=== PATIENT | female | born 1960 | race Two or more races ===

== ENCOUNTER 2017-09-26 21:54 | Emergency (ER) | payer MEDICAID, OTHER ==
[~2017-09-26] VITALS: Ht 160 cm; Wt 65.8 kg
[2017-09-26 22:49] VITALS: BP 138/85
--- NOTE | 2017-09-26 22:51 | Emergency Room Report ---
History of Present Illness General Chief Complaint: Nausea Source: Patient Present Illness HPI 56-year-old female presents with nausea and anxiety that started today she felt up-to-date sensation as well as headache and numbness in both of her fingers of both hands it all started after a neighbor spread Feces in front of her door.she feels better now. she does also want to show me that she's had a lump in he right medial thigh for 10 years, as well as a lump on her left foot dorsum for many years as well. She does not have a primary care doctor so she wanted to show me. She reports that sometimes painful but not red, and reports it's been the same size as for about 5-6 years at least. Allergies: Coded Allergies: Lettuce (Unverified Allergy, Unknown, 09/26/17) blisters PENICILLINS (Unverified Allergy, Unknown, 09/26/17) Patient History Past Medical History: see triage record Now: No Reviewed Nursing Documentation: PMH: Agreed; PSxH: Agreed Nursing Documentation-PMH Hx Cardiac Problems: Yes - Fibermyalgia, hemophylia, heart murmur Review of Systems All Other Systems: negative except mentioned in HPI Physical Exam Vital Signs Date Time Temp Pulse Resp B/P (MAP) Pulse Ox O2 Delivery O2 Flow Rate FiO2 09/26/17 21:48 98.9 109 18 161/96 98 Room Air 99.0 Sp02 EP Interpretation: reviewed, normal General Appearance: no apparent distress, alert, non-toxic Head: normocephalic Eyes: bilateral eye normal inspection, bilateral eye PERRL, bilateral eye EOMI ENT: normal ENT inspection, hearing grossly normal, normal pharynx, no angioedema, normal voice, moist mucus membranes Neck: normal inspection, full range of motion, supple, supple/symm/no masses Respiratory: chest non-tender, lungs clear, normal breath sounds, chest symmetrical, palpation of chest normal Cardiovascular #1: normal peripheral pulses, regular rate, rhythm Cardiovascular #2: 2+ radial (R), 2+ radial (L) Gastrointestinal: normal inspection, non tender, soft, no mass, no guarding, no rebound Rectal: deferred Genitourinary: normal inspection, no CVA tenderness Musculoskeletal: back normal, gait/station normal, normal range of motion, non- tender, no calf tenderness, other - Baseball sized lump medial proximal thigh, no erythema, no warmth, minimal tenderness; Also 2cm lump left foot dorsum, soft, no erythema nontender Neurologic: alert, responsive, 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 EKG Diagnostic Results EKG Time: 22:17 EP Interpretation: No ST segment changes no T-wave inversions Rate: normal Rhythm: NSR ST Segments: no acute changes ASA given to the pt in ED: No Rhythm Strip Diag. Results Rhythm Strip Time: 22:49 EP Interpretation: yes Rate: 85 Rhythm: NSR, no PVC's, no ectopy Chest X-Ray Diagnostic Results Chest X-Ray Diagnostic Results : Chest X-Ray Ordered: Yes # of Views/Limited/Complete: 1 View Indication: Other EP Interpretation: Yes Interpretation: no consolidation, no effusion, no pneumothorax, no acute cardiopulmonary disease Impression: No acute disease Electronically Signed by: Eloy Heart MD Last Vital Signs Date Time Temp Pulse Resp B/P (MAP) Pulse Ox O2 Delivery O2 Flow Rate FiO2 09/26/17 21:48 98.9 109 18 161/96 98 Room Air 99.0 Disposition: HOME, SELF-CARE Condition: Stable ELOY HEART M.D Sep 26, 2017 22:50
[2017-09-26] MEDS: LORazepam 1mg tab ORAL ONE ×2 (23:16→23:58)
--- NOTE | 2017-09-26 23:29 | Diagnostic Imaging Report ---
EXAM: XR Chest, 1 View CLINICAL HISTORY: VOMITING TECHNIQUE: Frontal view of the chest. COMPARISON: No relevant prior studies available. FINDINGS: Lungs: Unremarkable. No consolidation. Pleural space: Unremarkable. No pneumothorax. Heart: Unremarkable. No cardiomegaly. Mediastinum: Unremarkable. Bones/joints: No acute osseous abnormality. IMPRESSION: No acute cardiopulmonary process.
[2017-09-27 00:13] LABS: BASOPHILS % (AUTO) 1.1 % (0.0-2.0); EOSINOPHILS % (AUTO) 1.6 % (0.0-3.0); HEMATOCRIT 42.6 % (37.0-47.0); LYMPHOCYTES % (AUTO) 29.5 % (20.0-45.0); MEAN CORPUSCULAR VOLUME 87 FL (80-99); MONOCYTES % (AUTO) 7.4 % (1.0-10.0); NEUTROPHILS % (AUTO) 60.4 % (45.0-75.0); PLATELET COUNT 202 K/UL (150-450); RED CELL DISTRIBUTION WIDTH 10.7 % (11.6-14.8); WHITE BLOOD COUNT 7.7 K/UL (4.8-10.8)
[2017-09-27 00:30] LABS: ANION GAP 10 mmol/L (5-15); BLOOD UREA NITROGEN 8 mg/dL (7-18); CALCIUM 9.6 MG/DL (8.5-10.1); CARBON DIOXIDE 25 MMOL/L (21-32); CHLORIDE 106 MMOL/L (98-107); CREATININE 0.7 MG/DL (0.55-1.30); POTASSIUM 3.5 MMOL/L (3.5-5.1); SODIUM 141 MMOL/L (136-145)
[2017-09-27 00:44] LABS: ALANINE AMINOTRANSFERASE 41 U/L (12-78); ALBUMIN 3.9 G/DL (3.4-5.0); ALBUMIN/GLOBULIN RATIO 0.9 (1.0-2.7); ALKALINE PHOSPHATASE 98 U/L (46-116); ASPARTATE AMINO TRANSFERASE 31 U/L (15-37); BILIRUBIN,TOTAL 0.4 MG/DL (0.2-1.0); CKMB 1.8 NG/ML (0.0-3.6); CREATINE KINASE 141 U/L (26-308)
[2017-09-27 01:09] VITALS: BP 124/78
[2017-09-27] MEDS ORDERED: ZOFRAN4 M1 ORAL (01:58)
[2017-09-27 02:16] VITALS: BP 105/74
[2017-09-27] MEDS ORDERED: MAXALT10 MG PO (02:42)
--- NOTE | 2017-10-01 15:31 | Cardiology Report ---
APPROVED REPORT EKG Measurement Heart [id number] Normal sinus rhythm Possible Left atrial enlargement Cannot rule out Anterior infarct, age undetermined Abnormal ECG
== END 2017-09-27 02:16 | disposition home or self-care (01) ==
LOC: EDBD 21:54 → EMR 22:40
DX: F41.9 Anxiety disorder, unspecified (principal); R11.0 Nausea; R51 Headache; R22.42 Localized swelling, mass and lump, left lower limb; Z88.0 Allergy status to penicillin
CPT/HCPCS: 36415; 71045; 80053; 82550; 82553; 84484; 85025; 93005; 99283

== ENCOUNTER 2017-11-28 21:11 | Emergency (ER) | payer OTHER ==
[~2017-11-28] VITALS: Ht 160 cm; Wt 54.4 kg
[~2017-11-28 21:11] MED LIST: MAXALT10 MG PO; ZOFRAN4 M1 ORAL
[2017-11-28] MEDS ORDERED: ZOFRAN4 MG ORAL (21:24)
[2017-11-28] MEDS ORDERED: HYDROCODON-ACE1 EA15 ORAL (21:24)
--- NOTE | 2017-11-28 21:24 | Emergency Room Report ---
History of Present Illness General Chief Complaint: Headache Source: Patient, EMS Present Illness HPI Is a 57-year-old female with a history of breast cancer and hemophilia. She presents with chief complaint of headache and body pain status post fall. 2 days ago she tripped on the curb and fell hitting her head and hurting her body. She went to [facility] and had x-rays and CT head. There were negative. She was sent home without any medication. She called 911 today because she still having headache and feeling nauseous. She also has left shoulder pain and left knee pain that were not x-rays. Pain is 10 out of 10. Nausea but no vomiting. No diarrhea. No seizure. Nothing made it better and movement made it worse. Allergies: Coded Allergies: Lettuce (Unverified Allergy, Unknown, 09/26/17) blisters PENICILLINS (Unverified Allergy, Unknown, 09/26/17) Patient History Past Medical History: see triage record, old chart reviewed Past Surgical History: other Pertinent Family History: none Social History: Denies: smoking Now: No Immunizations: other Reviewed Nursing Documentation: PMH: Agreed; PSxH: Agreed Nursing Documentation-PMH Hx Cardiac Problems: Yes - Fibermyalgia, hemophylia, heart murmur Review of Systems Eye: Denies: eye pain, blurred vision ENT: Denies: ear pain, nose congestion, throat swelling Respiratory: Denies: cough, shortness of breath Cardiovascular: Denies: chest pain, palpitations Gastrointestinal: Denies: abdominal pain, diarrhea, nausea, vomiting Musculoskeletal: Reports: joint pain, joint swelling, muscle stiffness; Denies : back pain Skin: Denies: rash Neurological: Reports: headache; Denies: numbness Endocrine: Denies: increased thirst, increased urine Hematologic/Lymphatic: Denies: easy bruising All Other Systems: negative except mentioned in HPI Physical Exam Vital Signs Date Time Temp Pulse Resp B/P (MAP) Pulse Ox O2 Delivery O2 Flow Rate FiO2 11/28/17 21:12 97.9 80 16 133/91 98 97.9 vitals normal Sp02 EP Interpretation: reviewed, normal General Appearance: well appearing, no apparent distress, alert Head: normocephalic, other - left periorbital ecchymosis. Eyes: bilateral eye PERRL, bilateral eye EOMI ENT: hearing grossly normal, normal pharynx Neck: full range of motion, supple, no meningismus Respiratory: chest non-tender, lungs clear, normal breath sounds Cardiovascular #1: regular rate, rhythm, no murmur Gastrointestinal: normal bowel sounds, non tender, no mass, no organomegaly, no bruit, non-distended Musculoskeletal: back normal, gait/station normal, normal range of motion, other - left shoulder pain. no deformity. FROM. NVI. Left knee with mild abrasion and edema. FROM. no deformity. NVI Psychiatric: mood/affect normal Skin: warm/dry Medical Decision Making Diagnostic Impression: Primary Impression: Post concussive syndrome Additional Impressions: Contusion of left shoulder or upper extremity Contusion of left knee, initial encounter ER Course Patient presents with postconcussive syndrome secondary to injury and fall. CT scan is negative. I ordered a repeat CT scan you know she had one 2 days ago because of her hemophilia to look for delayed bleeding. There is no bleeding or skull fracture. We'll discharge home. Other X-Ray Diagnostic Results Other X-Ray Diagnostic Results #1: X-Ray ordered: left shoulder x-rays # of Views/Limited Vs Complete: 3 View Indication: Pain EP Interpretation: Yes Interpretation: no dislocation, no soft tissue swelling, no fractures Impression: No acute disease Electronically Signed by: Tadeo Diaz MD Other X-Ray Diagnostic Results #2: X-Ray ordered: left knee xrays # of Views/Limited Vs Complete: 4 View Indication: Pain EP Interpretation: Yes Interpretation: no dislocation, no soft tissue swelling, no fractures Impression: No acute disease Electronically Signed by: Tadeo Diaz MD CT/MRI/US Diagnostic Results CT/MRI/US Diagnostic Results : Imaging Test Ordered: CT head Impression Read by radiologist. No intracranial fracture or bleed. Last Vital Signs Date Time Temp Pulse Resp B/P (MAP) Pulse Ox O2 Delivery O2 Flow Rate FiO2 11/28/17 21:12 97.9 80 16 133/91 98 97.9 Status: improved Disposition: HOME, SELF-CARE Condition: Stable Scripts Rizatriptan Benzoate ([employer]) 10 Mg Tab.rapdis 10 MG PO DAILY, #30 TAB Prov: TADEO DIAZ M.D. 11/28/17 Ondansetron (Zofran) 4 Mg Tablet 4 MG ORAL Q6H PRN for Nausea & Vomiting, #20 TAB 0 Refills Prov: TADEO DIAZ M.D. 11/28/17 Hydrocodone/Acetaminophen 5-325* (HYDROCODONE/ACETAMINOPHEN 5-325*) 1 Each Tablet 1 TAB ORAL Q6H PRN for For Pain, #20 TAB 0 Refills Prov: TADEO DIAZ M.D. 11/28/17 Additional Instructions: Follow-up with your doctor in 7 days. Ice pack to the area. Return if symptom worsen. TADEO DIAZ M.D. Nov 28, 2017 21:24
[2017-11-28] MEDS ORDERED: Norco 5mg/325mg tab ORAL ONE (21:30)
[2017-11-28 21:36] VITALS: BP 133/91
--- NOTE | 2017-11-28 22:03 | Diagnostic Imaging Report ---
EXAM: CT Head Without Intravenous Contrast CLINICAL HISTORY: Headache, status post fall TECHNIQUE: Axial computed tomography images of the head/brain without intravenous contrast. CTDI is 0.15, 70.38 mGy and DLP is 1295 mGy-cm. One or more of the following dose reduction techniques were used: automated exposure control, adjustment of the mA and/or kV according to patient size, use of iterative reconstruction technique. COMPARISON: No relevant prior studies available. FINDINGS: Brain: Mild calcifications in the basal ganglia. No hemorrhage. No significant white matter disease. Ventricles: Unremarkable. No ventriculomegaly. Bones/joints: Unremarkable. No acute fracture. Soft tissues: Scalp hematoma in the left frontal region. Sinuses: Areas of mild mucosal thickening in the paranasal sinuses. Mastoid air cells: Unremarkable as visualized. No mastoid effusion. IMPRESSION: Scalp hematoma in the left frontal region. No CT evidence for acute intracranial injury.
[2017-11-28] MEDS ORDERED: MAXALT MLT10 MG PO (22:19)
--- NOTE | 2017-11-28 22:36 | Diagnostic Imaging Report ---
EXAM: XR Left Knee, 3 views CLINICAL HISTORY: TRAUMA, status post fall TECHNIQUE: Three views of the left knee. COMPARISON: No relevant prior studies available. FINDINGS: Bones/joints: Unremarkable. No acute fracture. No dislocation. Soft tissues: Unremarkable. IMPRESSION: No plain film evidence for acute fracture or dislocation. If there is continued clinical concern for fracture, consider CT or MRI for further evaluation.
--- NOTE | 2017-11-28 22:39 | Diagnostic Imaging Report ---
EXAM: XR Left Shoulder Complete, 3 Views CLINICAL HISTORY: TRAUMA, status post fall TECHNIQUE: 3 views of the left shoulder. COMPARISON: No relevant prior studies available. FINDINGS: Bones/joints: Degenerative changes of the acromioclavicular joint. No acute fracture. No dislocation. Soft tissues: Unremarkable. IMPRESSION: No definite plain film evidence for acute fracture or dislocation. If there is continued clinical concern for fracture, consider CT or MRI for further evaluation.
[2017-11-28 22:45] VITALS: BP 130/91
[2017-11-28 22:47] VITALS: BP 130/91
== END 2017-11-28 22:48 | disposition home or self-care (01) ==
LOC: EDBD 21:11 → EMR 21:35
DX: F07.81 Postconcussional syndrome (principal); S40.012A Contusion of left shoulder, initial encounter; S80.02XA Contusion of left knee, initial encounter; W01.198A Fall on same level from slipping, tripping and stumbling with subsequent striking against other object, initial encounter; Y92.480 Sidewalk as the place of occurrence of the external cause; D66 Hereditary factor VIII deficiency; I10 Essential (primary) hypertension; J42 Unspecified chronic bronchitis; M79.7 Fibromyalgia; R01.1 Cardiac murmur, unspecified; M25.40 Effusion, unspecified joint; Z88.0 Allergy status to penicillin; Z91.018 Allergy to other foods; Z85.3 Personal history of malignant neoplasm of breast
CPT/HCPCS: 70450; 99284

== ENCOUNTER 2018-04-12 05:32 | Emergency (ER) | payer OTHER ==
[~2018-04-12] VITALS: Ht 157.5 cm; Wt 54.4 kg
[~2018-04-12 05:32] MED LIST changes: +HYDROCODON-ACE1 EA15 ORAL; +MAXALT MLT10 MG PO; +ZOFRAN4 MG ORAL
[2018-04-12] MEDS ORDERED: Ketorolac 30mg Inj IV ONE (05:45)
--- NOTE | 2018-04-12 05:56 | Emergency Room Report ---
History of Present Illness General Chief Complaint: Fever Source: Patient Present Illness HPI Patient has a history of fibromyalgia. Patient presents emergency department today complaining of body aches. Patient states that she's had a fever intermittently for last week. She had a rash that covered entire body which was pruritic but then subsequently disappeared. She currently does not have a rash. Patient does complain nausea but denies vomiting. No other complaints are noted. Symptoms noted to be moderate.No other modifying factors. No other associated signs and symptoms. No other complaints were noted. Allergies: Coded Allergies: Lettuce (Unverified Allergy, Unknown, 09/26/17) blisters PENICILLINS (Unverified Allergy, Unknown, 09/26/17) UNABLE TO ASSESS (Unverified , 04/12/18) Patient History Past Medical History: other - Fibromyalgia Past Surgical History: none Pertinent Family History: none Social History: Denies: smoking, alcohol use, drug use Last Menstrual Period: UNK Reviewed Nursing Documentation: PMH: Agreed; PSxH: Agreed Nursing Documentation-PMH Past Medical History: No History, Except For Hx Cardiac Problems: No - fibromyalgia Review of Systems All Other Systems: negative except mentioned in HPI Physical Exam Vital Signs Date Time Temp Pulse Resp B/P (MAP) Pulse Ox O2 Delivery O2 Flow Rate FiO2 04/12/18 05:18 97.7 80 18 130/80 Room Air Sp02 EP Interpretation: reviewed, normal General Appearance: normal inspection, well appearing, no apparent distress, alert Head: atraumatic Eyes: bilateral eye normal inspection ENT: normal ENT inspection, hearing grossly normal, normal voice Neck: normal inspection, full range of motion, supple, no bony tend Respiratory: normal inspection, lungs clear, normal breath sounds, no respiratory distress, no retraction, no wheezing Cardiovascular #1: regular rate, rhythm, no edema Gastrointestinal: normal inspection, normal bowel sounds, non tender, soft, no guarding, no hernia Genitourinary: no CVA tenderness Musculoskeletal: normal inspection, back normal, normal range of motion Neurologic: normal inspection, alert, responsive, speech normal Psychiatric: normal inspection, judgement/insight normal, mood/affect normal, other - Argumentative, combative with staff Skin: normal inspection, normal color, no rash Medical Decision Making Diagnostic Impression: Primary Impression: Fever Additional Impression: Nausea alone ER Course Patient presents emergency department today with generalized weakness fever. Differential considerations include pneumonia bronchitis asthma COPD infectious process dehydration just name a few.Given the severity of the patient's presentation I felt this is a highly complex patient. This patient required extensive workup. Patient's laboratory workup is pending at this time. Patient 's x-ray however is normal. I will sign this case out to Dr. Obregon for final disposition. Labs Test 04/12/18 05:56 White Blood Count 7.1 K/UL (4.8-10.8) Red Blood Count 4.36 M/UL (4.20-5.40) Hemoglobin 12.9 G/DL (12.0-16.0) Hematocrit 38.2 % (37.0-47.0) Mean Corpuscular Volume 88 FL (80-99) Mean Corpuscular Hemoglobin 29.6 PG (27.0-31.0) Mean Corpuscular Hemoglobin Concent 33.7 G/DL (32.0-36.0) Red Cell Distribution Width 11.6 % (11.6-14.8) Platelet Count 284 K/UL (150-450) Mean Platelet Volume 8.2 FL (6.5-10.1) Neutrophils (%) (Auto) 50.6 % (45.0-75.0) Lymphocytes (%) (Auto) 35.8 % (20.0-45.0) Monocytes (%) (Auto) 10.1 % (1.0-10.0) Eosinophils (%) (Auto) 2.5 % (0.0-3.0) Basophils (%) (Auto) 1.0 % (0.0-2.0) Chest X-Ray Diagnostic Results Chest X-Ray Diagnostic Results : Chest X-Ray Ordered: Yes # of Views/Limited/Complete: 1 View Indication: Shortness of Breath EP Interpretation: Yes Interpretation: no consolidation, no effusion, no pneumothorax, no acute cardiopulmonary disease Impression: No acute disease Electronically Signed by: Electronically signed by Tommy Lara MD Last Vital Signs Date Time Temp Pulse Resp B/P (MAP) Pulse Ox O2 Delivery O2 Flow Rate FiO2 04/12/18 05:18 97.7 80 18 130/80 Room Air Tommy Lara MD Apr 12, 2018 05:56
[2018-04-12 06:02] VITALS: BP 130/80
[2018-04-12 06:08] LABS: EOSINOPHILS % (AUTO) 2.5 % (0.0-3.0); HEMATOCRIT 38.2 % (37.0-47.0); HEMOGLOBIN 12.9 G/DL (12.0-16.0); LYMPHOCYTES % (AUTO) 35.8 % (20.0-45.0); MEAN CORPUSCULAR VOLUME 88 FL (80-99); MONOCYTES % (AUTO) 10.1 % (1.0-10.0); NEUTROPHILS % (AUTO) 50.6 % (45.0-75.0); PLATELET COUNT 284 K/UL (150-450); RED BLOOD COUNT 4.36 M/UL (4.20-5.40); RED CELL DISTRIBUTION WIDTH 11.6 % (11.6-14.8); WHITE BLOOD COUNT 7.1 K/UL (4.8-10.8)
--- NOTE | 2018-04-12 06:09 | NUR ---
ER Nurse Note: Patient brought in by ambulance RA [id number] from home c/o fever; on triage temp 98.9. Pt stated she had a fever on 03/30; resolved. Pt had a rash all over her face and hands with pain, unk cause; resolved. Patient is persistently refusing to answer questions. Patient is laying on the floor in the ED in order to not answer triage questions. Pt became more cooperative when ERMD talked to pt. Pt a&ox4, VSS. All orders completed per ERMD orders. ERMD seen and treated pt; awaiting results. Will continue to [facility].
[2018-04-12 06:48] LABS: ANION GAP 11 mmol/L (5-15); BLOOD UREA NITROGEN 10 mg/dL (7-18); CALCIUM 9.8 MG/DL (8.5-10.1); CARBON DIOXIDE 26 MMOL/L (21-32); CHLORIDE 106 MMOL/L (98-107); CREATININE 0.7 MG/DL (0.55-1.30); POTASSIUM 3.4 MMOL/L (3.5-5.1); SODIUM 142 MMOL/L (136-145)
[2018-04-12 06:53] LABS: ALANINE AMINOTRANSFERASE 47 U/L (12-78); ALBUMIN 3.7 G/DL (3.4-5.0); ALBUMIN/GLOBULIN RATIO 0.9 (1.0-2.7); ALKALINE PHOSPHATASE 108 U/L (46-116); ASPARTATE AMINO TRANSFERASE 38 U/L (15-37); BILIRUBIN,TOTAL 0.5 MG/DL (0.2-1.0)
--- NOTE | 2018-04-12 07:04 | Diagnostic Imaging Report ---
EXAM: XR Chest, 1 View CLINICAL HISTORY: PAIN TECHNIQUE: Frontal view of the chest. COMPARISON: Chest x-ray 09/26/17 FINDINGS: Lungs: Unremarkable. No consolidation. Pleural space: Unremarkable. No pneumothorax. Heart: Unremarkable. No cardiomegaly. Mediastinum: Unremarkable. Bones/joints: Unremarkable. IMPRESSION: No acute cardiopulmonary process.
--- NOTE | 2018-04-12 07:10 | NUR ---
ER Nurse Note: Report given to PHILIPPE Kincaid. Pt a&ox4, VSS, no sings of distress. All belongings with pt.
[2018-04-12] MEDS ORDERED: CYCLOBENZAPRINE10 MG ORAL (07:45)
[2018-04-12] MEDS ORDERED: CLARITIN10 M2 ORAL (07:45)
[2018-04-12 08:00] VITALS: BP 126/76
--- NOTE | 2018-04-12 08:00 | NUR ---
ED Nurse Note: PT LAYING PEACEFULLY IN BED IN NAD. AOX4. VSS. PT ASKED FOR URINE SAMPLE. PT STATES SHE IS DRINKING WATER AND WILL PROVIDE SAMPLE SHORTLY.
--- NOTE | 2018-04-12 09:00 | NUR ---
ED Nurse Note: PT SLEEPING PEACEFULLY IN BED IN NAD. VSS. PT REMINDED THAT A URINE SAMPLE IS STILL NEEDED FOR UA. PT STATES SHE DOES NOT HAVE TO URINATE AT THIS TIME AND WILL TRY LATER.
--- NOTE | 2018-04-12 09:50 | NUR ---
ED Nurse Note: PT SITTING PEACEFULLY IN BED IN NAD. PT AMBULATED TO BATHROOM ACCOMPANIED BY EMT TO GIVE URINE SAMPLE AND AMBULATED SAFELY BACK TO ROOM ACCOMPANIED BY RN. LATANYA. AOX4.
[2018-04-12 10:00] VITALS: BP 127/80
[2018-04-12 10:04] LABS: APPEARANCE,URINE CLEAR; BILIRUBIN, URINE NEGATIVE (NEGATIVE); COLOR,URINE PALE YELLOW; GLUCOSE, URINE (UA) NEGATIVE (NEGATIVE); KETONES,URINE NEGATIVE (NEGATIVE); LEUKOCYTE ESTERASE ,URINE NEGATIVE (NEGATIVE); NITRITE,URINE NEGATIVE (NEGATIVE); PH,URINE 7 (4.5-8.0); PROTEIN,URINE NEGATIVE (NEGATIVE); UROBILINOGEN,URINE NORMAL MG/DL (0.0-1.0)
--- NOTE | 2018-04-12 10:20 | NUR ---
ED Nurse Note: DR. DALY AT BEDSIDE EXPLAINING TO THE PT THAT SHE CAN BE DISCHARGED. PT REASSURED THAT BLOOD WORK, UA, AND EKG ARE ALL WNL. PT REFUSES TO SIGN DISCHARGE PAPERWORK INSISTING SHE CANNOT BE DISCHARGED. PT EDUCATED AGAIN ON RESULTS OF ALL LAB WORK BUT PT STILL REFUSES TO BE DISCHARGED.
--- NOTE | 2018-04-12 10:30 | NUR ---
ED Nurse Note: CHARGE NURSE CALLED FOR ASSISTANCE. PT STILL REFUSES TO SIGN DISCHARGE PAPERWORK. PT INFORMED THAT IT IS OKAY FOR HER TO REFUSE TO SIGN BUT THAT SHE HAS BEEN CLEARED FOR DISCHARGE BY DR. DALY AND THAT SHE NEEDS TO LEAVE. PT INFORMED THAT IV MUST BE REMOVED BUT PT REFUSES TO ALLOW REMOVAL OF IV.
--- NOTE | 2018-04-12 10:40 | NUR ---
ED Nurse Note: PT REFUSES DISCHARGE. SECURITY CALLED FOR ASSISTANCE.
--- NOTE | 2018-04-12 10:53 | NUR ---
ED Nurse Note: PT STILL NONCOMPLIANT AND REFUSES TO COOPERATE WITH RN, CHARGE NURSE, AND SECURITY. GREGORYD CALLED FOR ASSISTANCE.
--- NOTE | 2018-04-12 11:20 | NUR ---
ED Nurse Note: OFFICERS AT BEDSIDE ASSISTING WITH PT COOPERATION. BERNADINE, CHARGE NURSE AT BEDSIDE FOR IV REMOVAL.
[2018-04-12 11:26] VITALS: BP 138/87
--- NOTE | 2018-04-12 11:36 | NUR ---
ER Nurse Note: PT LAYING PEACEFULLY IN BED IN NAD. AOX4. VSS. PRESCRIPTIONS AND DISCHARGE PAPERWORK EXPLAINED TO PT. AT BEDSIDE EXPLANING THAT PT IS CLEARED FOR DISCHARGE AND THAT THERE IS NO REASON FOR ADMITTING HER TO HOSPITAL. PRESCRIPTIONS AND DISCHARGE PAPERWORK GIVEN TO PT, IV AND ID WRISTBAND REMOVED. PT TAKEN OUT OF ER VIA WHEELCHAIR WITH ALL BELONGINGS ACCOMPANIED BY [employer].
== END 2018-04-12 11:30 | disposition home or self-care (01) ==
LOC: EDBD 05:32 → EMR 06:04
DX: R50.9 Fever, unspecified (principal); R11.0 Nausea; Z88.0 Allergy status to penicillin
CPT/HCPCS: 36415; 71045; 80053; 81003; 85025; 96361; 96374; 99284; J1885